=== PATIENT | female | born 1990 | race Caucasian/White ===

== ENCOUNTER 2016-11-17 08:53 | Emergency (ER) | payer OTHER ==
[2016-11-17 08:59] VITALS: RESP 18
--- NOTE | 2016-11-17 09:08 | CPEKG ---
Heart Rate: 70 RR Interval: 857 P-R Interval: 112 QRSD Interval: 82 QT Interval: 392 QTC Interval: 423 P Bull[place]: 134 QRS [place]: 85 T Wave [place]: 33 EKG Severity - NORMAL ECG - EKG Impression: SINUS RHYTHM Electronically Signed By: Niurka Rios 17-Nov-2016 12:51:55
[2016-11-17] MEDS ORDERED: IPRATROPIUM/ALBUTEROL 3 ML DEYVIAL IH ONE (09:50)
[2016-11-17] MEDS ORDERED: KETOROLAC 15 MG/1 ML SDV IVP ONE (09:50)
--- NOTE | 2016-11-17 09:53 | EDPHY ---
H & P Time Seen by Provider: 11/17/16 09:18 HPI/ROS: CHIEF COMPLAINT: Chest tightness HISTORY OF PRESENT ILLNESS: 26-year-old female with a history of asthma presents with chest tightness. Onset of chest tightness yesterday. Associated with a few day history of cough, sore throat, congestion and ear fullness. She used her albuterol inhaler without relief. She was seen in urgent care last night and was given prescriptions, which she has not yet filled. This morning she awoke with similar symptoms, decided to come to the emergency department. No associated shortness of breath. No recent prolonged travel. REVIEW OF SYSTEMS: Constitutional: No fever, no chills Eyes: No visual changes Cardiac: No chest pain Gastrointestinal: No nausea, no vomiting, no abdominal pain Genitourinary: no dysuria Musculoskeletal: No leg pain or swelling Skin: No rash Neurological: No headache, no weakness Psychiatric: No depression Past Medical/Surgical History: Asthma Social History: PCP: Dr. Edwards Smoking Status: Never smoked Physical Exam: General Appearance: Alert, pleasant Eyes: Pupils equal and round, no conjunctival pallor or injection ENT, Mouth: Mucous membranes moist Neck: Normal inspection Respiratory: Lungs are clear to auscultation, no wheezing Cardiovascular: Regular rate and rhythm Gastrointestinal: Abdomen is soft and nontender Neurological: A&O, nonfocal, normal gait Skin: Warm and dry, no rash Extremities: Nontender, no pedal edema Psychiatric: Mood and affect normal Constitutional: Initial Vital Signs Temperature (C) 36.4 C 11/17/16 08:57 Heart Rate 79 11/17/16 08:57 Respiratory Rate 18 11/17/16 08:57 Blood Pressure 112/83 H 11/17/16 08:57 O2 Sat (%) 98 11/17/16 08:57 O2 Delivery Mode Room Air Allergies/Adverse Reactions: No Known Allergies Allergy (Unverified 11/17/16 08:54) Home Medications: Medication Instructions Recorded Albuterol 11/17/16 Barbara Allergy 11/17/16 BENADRYL 11/17/16 MIRENA 11/17/16 Qvar 11/17/16 Medical Decision Making - Diagnostics EKG Interpretation: EKG interpreted by me reveals normal sinus rhythm, rate 70, no ST or T segment changes. Imaging Results: Imaging Impressions Chest X-Ray 11/17/16 09:19 Impression: 1. No active cardiopulmonary disease seen. 2. Hyperexpanded lungs possibly from increased inspiratory effort. Rule out air trapping. Chest x-ray independently reviewed by me reveals hyperinflation, no infiltrate. ED Course/Re-evaluation: This patient presents with persistent chest tightness, likely secondary to viral syndrome. There is no evidence of pneumonia and there is no wheezing on exam. I do not suspect pulmonary embolism in this patient. Perc score is 0. DuoNeb and Toradol 15 mg IV given. The patient feels much better after these medications. Chest remained clear to auscultation and oxygen saturation 98% on room air. She is safe and stable for discharge home. She will continue to take ibuprofen 3 times daily as needed for chest discomfort. Warning signs discussed. - Data Points Medications Given: Discontinued Medications Albuterol/Ipratropium (Duoneb) 3 ml IH EDNOW ONE Stop: 11/17/16 09:51 Last Admin: 11/17/16 10:29 Dose: 3 ml Ketorolac Tromethamine (Toradol) 15 mg IVP EDNOW ONE Stop: 11/17/16 09:51 Last Admin: 11/17/16 10:29 Dose: 15 mg Departure - Departure Disposition: Home, Routine, Self-Care Clinical Impression: Chest tightness Condition: Good Instructions: Chest Pain (ED) Additional Instructions: Ibuprofen 600 mg 3 times daily while the pain persists. Referrals: Davis Edwards MD [Primary Care Provider] - 2-3 days, call for appt.
[2016-11-17 10:47] VITALS: BP 123/85; PULSE 82; TEMP 97.9; O2SAT 100
== END 2016-11-17 10:46 | disposition home or self-care (01) ==
DX: R07.89 Other chest pain (principal); J45.909 Unspecified asthma, uncomplicated
CPT/HCPCS: 96374; J1885